=== PATIENT | female | born 1985 ===

== ENCOUNTER 2019-08-19 13:57 | Inpatient (IN) | payer OTHER ==
[2019-08-19] MEDS ORDERED: NALOXONE 0.4 MG/ML 1 ML VIAL IV PRN (15:27)
[2019-08-19] MEDS ORDERED: HYDROcodone/APAP 5-325MG 1 EACH TAB PO PRN (15:27)
[2019-08-19] MEDS ORDERED: ONDANSETRON 4 MG/2 ML VIAL IVP PRN (15:27)
[2019-08-19] MEDS ORDERED: ACETAMINOPHEN TAB 325 MG TAB PO PRN (15:27)
[2019-08-19] MEDS ORDERED: ALBUTEROL INHALER 60 PUFF/8 GM INHALER (BULK) INHALATION PRN (15:31)
--- NOTE | 2019-08-19 15:35 | P.HPIM ---
History of Present Illness H&P Date: 08/19/19 Chief Complaint: shorntess of breath A 34-year-old -[place] female with a past medical history of diabetes mellitus type 2 treated with metformin unsure of blood sugars who presented initially to [facility] with complaints of shortness of breath and cough. She was transferred here as part of the Covid 19 pandemic relief transfer process. In the ER at [facility] she was found to have bilateral pneumonia with concern for possible Covid 19 versus community-acquired pneumonia. At [facility] she received Zithromax, Rocephin, Protonix, and bronchodilators. Laboratory analysis showed a white blood cell Of 5.6, Hemoglobin 12.8, Platelets 214, Absolute Lymphocytes of 2.13, Glucose 280, BUN 5, Creatinine 0.49, Sodium 134, Potassium 3.5, Chloride 100, Carbon Dioxide of 25, Creatine Kinase 128. Her Calcium was slightly low at 7.9., Ferritin markedly elevated at 558, LDH elevated at 454, test negative, influenza A and B. EKG was obtained and showed sinus tachycardia at a rate of 122, QT 390. Chest x-ray showed bilateral perihilar opacities. Seen and examined at bedside. She reports that she has been sick for approximately the last 2-3 weeks. Initially she was having some left ear pain and a sore throat. At that point in time she was placed on antibiotics and 4 days later became acutely worse. She reports that she is having significant shortness of breath and cough. Shortness of breath is worse with exertion but is still present at rest. She has had decreased appetite with loss of taste and smell which just started coming back yesterday. She has had some nausea and vomited bilious fluid. She started having diarrhea today. She is having significant body aches. She reports no fevers at home. She has no history of asthma but has noted some wheezing. She denies any significant known Covid 19 exposures. 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 She is unsure how well controlled her diabetes. Review of Systems Pertinent positives and negatives as discussed in HPI, a complete review of systems was performed and all other systems are negative. Past Medical History Past Medical History: Diabetes Mellitus Past Surgical History: Section Past Anesthesia/Blood Transfusion Reactions: No Reported Reaction Past Psychological History: No Psychological Hx Reported Smoking Status: Never smoker Past Alcohol Use History: None Reported Past Drug Use History: None Reported Additional History: Works as a collection systems modeler at [employer], no assistive devices, has been living with her mother and brother. - Past Family History Father Family Medical History: No Reported History Mother Family Medical History: Diabetes Mellitus Medications and Allergies Allergies Allergy/AdvReac Type Severity Reaction Status Date / Time No Known Allergies Allergy Verified 08/19/19 15:26 Physical Exam Osteopathic Statement: *. No significant issues noted on an osteopathic structural exam other than those noted in the History and Physical/Consult. Vitals: Vital Signs Temp Pulse Resp BP Pulse Ox 08/19/19 14:06 98.0 F 98 22 129/83 99 Intake and Output 08/19/19 08/19/19 08/19/19 06:59 14:59 22:59 Other: Weight 117.48 kg General: Ill-appearing, moderate respiratory distress appears at stated age, obese Derm: no unusual rashes/lesions no unusual ecchymoses, warm, dry Head: atraumatic, normocephalic, symmetric Eyes: EOMI, no lid lag, anicteric sclera, pupils equal round reactive to light ENT: Nose and ears atraumatic, no thrush, no pharyngeal erythema Neck: No thyromegaly, no cervical lymphadenopathy, trachea midline, supple Mouth: no lip lesion, mucus membranes dry Cardiovascular: S1S2 reg, no murmur, positive posterior tibial pulse bilateral, no edema, capillary refill less than 2 seconds Lungs: Wheezing bilateral, no rhonchi, no rales , word conversational dyspnea Abdominal: soft, nontender to palpation, no guarding, no appreciable organomegaly, normal bowel sounds Ext: no gross muscle atrophy, muscle strength 5 out of 5 in all 4 extremities grossly, no contractures, Neuro: CN II-XI grossly intact, light touch intact all 4 extremities, finger to nose within normal limits, Psych: Alert, oriented, appropriate affect Results Chest x-ray: report reviewed Thrombosis Risk Factor Assmnt - DVT/VTE Prophylaxis DVT/VTE Prophylaxis: Pharmacologic Prophylaxis ordered Assessment and Plan Assessment: Bilateral pneumonia, suspicion of Covid 19 -Influenza negative, chest x-ray with bilateral perihilar infiltrates -Continue with Rocephin, Zithromax -Patient's room air pulse ox is 100% at this point in time does not meet criteria for Plaquenil therapy. - Albuterol inhaler -Repeat chest x-ray in a.m. -Elevated LDH and mildly elevated d-dimer, lymphocytes normal -Await Covid 19 testing -Continue continue with droplet plus contact precautions Acute respiratory failure due to increased work of breathing with respiratory rate greater than 26 and conversational dyspnea -Treatment as above Diabetes mellitus type II -Hold metformin -Sliding-scale insulin -Check A1c Morbid obesity -Structured outpatient weight loss The patient is admitted with an anticipated greater than 2 midnight stay for evaluation of pneumonia. Surrogate decision-maker: Mother CODE STATUS: Full DVT prophylaxis: Heparin Discussed with: Patient, nursing, ED physicain at [facility] Anticipated discharge date: 2-[address]: home A total of 65 minutes was spent on the care of this complex patient more than 50% of the time was spent in counseling and care coordination.
[2019-08-19] MEDS ORDERED: BENZONATATE 100 MG CAP PO PRN (15:36)
[2019-08-19] MEDS ORDERED: MELATONIN 5 MG TABLET PO PRN (15:36)
[2019-08-19] MEDS ORDERED: ALBUTEROL INHALER 60 PUFF/8 GM INHALER (BULK) INHALATION SCH (16:00)
[2019-08-19 17:04] LABS: Glucose,Whole Blood 289 mg/dL (75-99)
[2019-08-19] MEDS: INSULIN ASPART (NovoLOG) 100 UNIT/ML VIAL SQ SCH ×2 (17:23→20:43)
[2019-08-19] MEDS: HEPARIN SODIUM,PORCINE 5,000 UNIT/ML 1 ML VIAL SQ SCH ×2 (17:23→23:45)
[2019-08-19] MEDS: SODIUM CHLORIDE 0.9% 1,000 ML IV SCH (17:24)
[2019-08-19] MEDS ORDERED: ALBUTEROL HFA INHALER INHALATION PRN (18:24)
[2019-08-19 20:08] LABS: Glucose,Whole Blood 319 mg/dL (75-99)
[2019-08-19] MEDS: ALBUTEROL HFA INHALER INHALATION SCH (21:34)
[2019-08-19] MEDS ORDERED: MAG HYDROX/AL HYDROX/SIMETH 30 ML CUP PO PRN (22:58)
[2019-08-19] MEDS: CALCIUM CARBONATE 500 MG CHEWABLE PO PRN (23:45)
[2019-08-20 06:54] LABS: Glucose,Whole Blood 252 mg/dL (75-99)
[2019-08-20] MEDS: SODIUM CHLORIDE 0.9% 1,000 ML IV SCH (07:02)
[2019-08-20] MEDS: AZITHROMYCIN 500 MG TAB PO SCH (07:33)
[2019-08-20] MEDS: HEPARIN SODIUM,PORCINE 5,000 UNIT/ML 1 ML VIAL SQ SCH ×2 (07:33→16:58)
[2019-08-20] MEDS: INSULIN ASPART (NovoLOG) 100 UNIT/ML VIAL SQ SCH ×4 (07:33→21:33)
[2019-08-20] MEDS: ALBUTEROL HFA INHALER INHALATION SCH ×4 (08:51→20:52)
[2019-08-20 10:18] LABS: Basophils % (A) 0 %; Eosinophils # (A) 0.1 k/uL (0-0.7); Eosinophils % (A) 1 %; HGB 12.3 gm/dL (11.4-16.0); Lymphocytes # (A) 1.3 k/uL (1.0-4.8); Lymphocytes % (A) 23 %; MCH 28.5 pg (25.0-35.0); MCHC 33.2 g/dL (31.0-37.0); MCV 85.8 fL (80.0-100.0); Mean Platelet Volume 7.9; Monocytes # (A) 0.3 k/uL (0-1.0); Monocytes % (A) 5 %; Neutrophils # (A) 3.9 k/uL (1.3-7.7); Neutrophils % (A) 67 %; Platelet Count 228 k/uL (150-450); RBC 4.31 m/uL (3.80-5.40); RDW 12.5 % (11.5-15.5); WBC 5.8 k/uL (3.8-10.6)
[2019-08-20 10:35] LABS: ALT 24 U/L (4-34); AST 39 U/L (14-36); African American GFR (CKD) >90 (>60 ml/min/1.73 sqM); Albumin 3.4 g/dL (3.5-5.0); Alkaline Phosphatase 86 U/L (38-126); Anion Gap 8 mmol/L; Blood Urea Nitrogen 4 mg/dL (7-17); C Reactive Protein 25.6 mg/L (<10.0); Calcium 8.3 mg/dL (8.4-10.2); Carbon Dioxide 28 mmol/L (22-30); Chloride 99 mmol/L (98-107); Creatine Kinase 74 U/L (30-135); Glucose 284 mg/dL (74-99); LDH 785 U/L (313-618); Magnesium 1.7 mg/dL (1.6-2.3); Non-African American GFR(CKD) >90 (>60 ml/min/1.73 sqM); Phosphorus 3.1 mg/dL (2.5-4.5); Potassium 3.6 mmol/L (3.5-5.1); Sodium 135 mmol/L (137-145); Total Bilirubin 0.6 mg/dL (0.2-1.3); Total Protein 6.6 g/dL (6.3-8.2)
[2019-08-20 11:19] LABS: Glucose,Whole Blood 281 mg/dL (75-99)
--- NOTE | 2019-08-20 16:06 | P.PN ---
Subjective Progress Note Date: 08/20/19 (delayed charting see at 1120) Principal diagnosis: shortness of breath Patient is a 34-year-old -[place] female with a past medical history of diabetes mellitus type 2 treated with metformin unsure of blood sugars who presented initially to [facility] with complaints of shortness of breath and cough. She was transferred here as part of the Covid 19 pandemic relief transfer process. In the ER at [facility] she was found to have bilateral pneumonia with concern for possible Covid 19 versus community-acquired pneumonia. At [facility] she received Zithromax, Rocephin, Protonix, and bronchodilators. Laboratory analysis showed a white blood cell count of 5.6, Hemoglobin 12.8, Platelets 214, Absolute Lymphocytes of 2.13, Glucose 280, BUN 5 , Creatinine 0.49, Sodium 134, Potassium 3.5, Chloride 100, Carbon Dioxide of 25, Creatine Kinase 128. Her Calcium was slightly low at 7.9., Ferritin markedly elevated at 558, LDH elevated at 454, test negative, influenza A and B. EKG was obtained and showed sinus tachycardia at a rate of 122, QT 390. Chest x-ray showed bilateral perihilar opacities. She was transferred here and continued on Rocephin and Zithromax. She does not meet criteria for hydroxychloroquine. Patient seen and examined at bedside. She reports she still feels "terrible". She continues to have a bad cough. No nausea, vomiting, or diarrhea. Still having significant muscle aches. Objective - Vital Signs Vital signs: Vital Signs Temp 98.5 F 08/20/19 11:00 Pulse 92 08/20/19 11:00 Resp 20 08/20/19 15:47 BP 125/83 08/20/19 11:00 Pulse Ox 99 08/20/19 11:00 Intake & Output 08/19/19 08/20/19 08/20/19 18:59 06:59 18:59 Intake Total 450 Balance 450 Weight 117.48 kg Intake: Intake, IV Titration 50 Amount cefTRIAXone 1 gm In 50 Sodium Chloride 0.9% 50 ml @ 100 mls/hr IVPB Q24HR JOLLY Rx#:[id number] Oral 400 Other: # Voids 1 - Exam General: Ill appearing, no distress, appears at stated age Derm: warm, dry Head: atraumatic, normocephalic, symmetric Eyes: EOMI, no lid lag, anicteric sclera Mouth: no lip lesion, mucus membranes dry Cardiovascular: S1S2 reg, no murmur, positive posterior tibial pulse bilateral, Lungs: Rhonchi bilateral, no accessory muscle use, 3 word conversational dyspnea Abdominal: soft, nontender to palpation, no guarding, no appreciable organomegaly Ext: no gross muscle atrophy, no edema, no contractures Neuro: CN II-XI grossly intact, no focal neuro deficits Psych: Alert, oriented, appropriate affect - Labs CBC & Chem 7: 08/20/19 09:53 08/20/19 09:53 Labs: Abnormal Lab Results - Last 24 Hours (Table) 08/19/19 08/19/19 08/20/19 Range/Units 17:03 20:07 06:52 D-Dimer (<0.60) mg/L FEU Sodium (137-145) mmol/L BUN (7-17) mg/dL Creatinine (0.52-1.04) mg/dL Glucose (74-99) mg/dL POC Glucose (mg/dL) 289 H 319 H 252 H (75-99) mg/dL Calcium (8.4-10.2) mg/dL AST (14-36) U/L Lactate Dehydrogenase (313-618) U/L C-Reactive Protein (<10.0) mg/L Albumin (3.5-5.0) g/dL 08/20/19 08/20/19 08/20/19 Range/Units 09:53 09:53 11:17 D-Dimer 0.83 H (<0.60) mg/L FEU Sodium 135 L (137-145) mmol/L BUN 4 L (7-17) mg/dL Creatinine 0.42 L (0.52-1.04) mg/dL Glucose 284 H (74-99) mg/dL POC Glucose (mg/dL) 281 H (75-99) mg/dL Calcium 8.3 L (8.4-10.2) mg/dL AST 39 H (14-36) U/L Lactate Dehydrogenase 785 H (313-618) U/L C-Reactive Protein 25.6 H (<10.0) mg/L Albumin 3.4 L (3.5-5.0) g/dL Assessment and Plan Assessment: Bilateral pneumonia, suspicion of Covid 19 -Influenza negative, chest x-ray with bilateral perihilar infiltrates -D-dimer mildly elevated at 0.83, AST mildly elevated, LDH 785, elevated CRP at 25.6, CK normal -Continue with Rocephin, Zithromax -Patient's room air pulse ox is 100% at this point in time does not meet criteria for Plaquenil therapy. - Albuterol inhaler -Repeat chest x-ray in a.m. -Await Covid 19 testing -Continue continue with droplet plus contact precautions Acute respiratory failure -Treatment as above Diabetes mellitus type II -Hold metformin -Sliding-scale insulin -A1c pending Morbid obesity -Structured outpatient weight loss DVT prophylaxis: Heparin Discussed with: Patient, nursing Anticipated discharge date: In a.m. Anticipated discharge place: home A total of 35 minutes was spent on the care of this complex patient more than 50% of the time was spent in counseling and care coordination.
[2019-08-20 16:32] LABS: Glucose,Whole Blood 324 mg/dL (75-99)
[2019-08-20 20:57] LABS: Glucose,Whole Blood 305 mg/dL (75-99)
[2019-08-21] MEDS: HEPARIN SODIUM,PORCINE 5,000 UNIT/ML 1 ML VIAL SQ SCH ×4 (00:06→23:18)
[2019-08-21 06:54] LABS: Glucose,Whole Blood 290 mg/dL (75-99)
[2019-08-21] MEDS: SODIUM CHLORIDE 0.9% 1,000 ML IV SCH (07:46)
[2019-08-21] MEDS: INSULIN ASPART (NovoLOG) 100 UNIT/ML VIAL SQ SCH ×4 (07:51→22:17)
[2019-08-21] MEDS: AZITHROMYCIN 500 MG TAB PO SCH (07:51)
[2019-08-21 08:26] VITALS: RESP 18
[2019-08-21] MEDS: ALBUTEROL HFA INHALER INHALATION SCH ×4 (08:40→19:36)
[2019-08-21 08:49] LABS: ALT 21 U/L (4-34); AST 32 U/L (14-36); African American GFR (CKD) >90 (>60 ml/min/1.73 sqM); Albumin 3.4 g/dL (3.5-5.0); Alkaline Phosphatase 81 U/L (38-126); Anion Gap 7 mmol/L; Blood Urea Nitrogen 4 mg/dL (7-17); C Reactive Protein 26.7 mg/L (<10.0); Calcium 8.4 mg/dL (8.4-10.2); Carbon Dioxide 27 mmol/L (22-30); Chloride 100 mmol/L (98-107); Creatine Kinase 69 U/L (30-135); Glucose 286 mg/dL (74-99); LDH 750 U/L (313-618); Non-African American GFR(CKD) >90 (>60 ml/min/1.73 sqM); Potassium 3.8 mmol/L (3.5-5.1); Sodium 134 mmol/L (137-145); Total Bilirubin 0.7 mg/dL (0.2-1.3); Total Protein 6.6 g/dL (6.3-8.2)
[2019-08-21 09:40] LABS: HCT 35.2 % (34.0-46.0); HGB 11.7 gm/dL (11.4-16.0); MCH 28.8 pg (25.0-35.0); MCHC 33.3 g/dL (31.0-37.0); MCV 86.2 fL (80.0-100.0); Mean Platelet Volume 8.4; Platelet Count 212 k/uL (150-450); RBC 4.08 m/uL (3.80-5.40); RDW 12.6 % (11.5-15.5)
[2019-08-21 10:22] LABS: Band Neutrophils % 1 %; Eosinophils # (M) 0.05 k/uL (0-0.7); Neutrophils % (M) 50 %; Nucleated Red Blood Cells 0 /100 WBC (0-0); Total Cells Counted 100
[2019-08-21 10:25] LABS: Anisocytosis (M) Present; Polychromasia Present
[2019-08-21 11:28] LABS: Glucose,Whole Blood 301 mg/dL (75-99)
--- NOTE | 2019-08-21 13:36 | XR ---
EXAMINATION TYPE: XR chest 1V portable DATE OF EXAM: 08/21/2019 COMPARISON: None INDICATION: Pneumonia TECHNIQUE: Single frontal view of the chest is obtained. FINDINGS: The heart size is normal. The pulmonary vasculature is normal. There are patchy infiltrates in the mid left lung and at the posterior right lung base. Correlate for pneumonia. IMPRESSION: 1. Patchy infiltrate within the left midlung and right lower lobe medially. Correlate for pneumonia.
[2019-08-21 16:09] LABS: Ferritin 371.7 ng/mL (10.0-291.0)
[2019-08-21 16:42] LABS: Glucose,Whole Blood 309 mg/dL (75-99)
--- NOTE | 2019-08-21 20:09 | P.PN ---
Subjective Progress Note Date: 08/21/19 (delayed charting patient seen at 1130) Principal diagnosis: shortness of breath Patient is a 34-year-old -Spanish female with a past medical history of diabetes mellitus type 2 treated with metformin unsure of blood sugars who presented initially to [facility] with complaints of shortness of breath and cough. She was transferred here as part of the Covid 19 pandemic relief transfer process. In the ER at [facility] she was found to have bilateral pneumonia with concern for possible Covid 19 versus community-acquired pneumonia. At [facility] she received Zithromax, Rocephin, Protonix, and bronchodilators. Laboratory analysis showed a white blood cell count of 5.6, Hemoglobin 12.8, Platelets 214, Absolute Lymphocytes of 2.13, Glucose 280, BUN 5, Creatinine 0.49, Sodium 134, Potassium 3.5, Chloride 100, Carbon Dioxide of 25, Creatine Kinase 128. Her Calcium was slightly low at 7.9., Ferritin markedly elevated at 558, LDH elevated at 454, test negative, influenza A and B. EKG was obtained and showed sinus tachycardia at a rate of 122, QT 390. Chest x-ray showed bilateral perihilar opacities. She was transferred here and continued on Rocephin and Zithromax. She does not meet criteria for hydroxychloroquine. She continued to slowly improve. Patient seen and examined at bedside. Feeling much better today than yesterday. Still continues to have some cough and shortness of breath but are improving. No nausea, vomiting, or diarrhea. Objective - Vital Signs Vital signs: Vital Signs Temp 97.7 F 08/21/19 15:00 Pulse 96 08/21/19 15:00 Resp 18 08/21/19 15:00 BP 135/93 08/21/19 15:00 Pulse Ox 96 08/21/19 15:00 Intake & Output 08/21/19 08/21/19 08/22/19 06:59 18:59 06:59 Intake Total 50 804 Balance 50 804 Intake: Intake, IV Titration 50 Amount cefTRIAXone 1 gm In 50 Sodium Chloride 0.9% 50 ml @ 100 mls/hr IVPB Q24HR JOLLY Rx#:[id number] Oral 50 754 Other: # Voids 1 - Exam General: Ill appearing, no distress, appears at stated age Derm: warm, dry Head: atraumatic, normocephalic, symmetric Eyes: EOMI, no lid lag, anicteric sclera Mouth: no lip lesion, mucus membranes dry Cardiovascular: S1S2 reg, no murmur, positive posterior tibial pulse bilateral, Lungs: Coarse breath sounds bilateral, no accessory muscle use Abdominal: soft, nontender to palpation, no guarding, no appreciable organo megaly Ext: no gross muscle atrophy, no edema, no contractures Neuro: CN II-XI grossly intact, no focal neuro deficits Psych: Alert, oriented, appropriate affect - Labs CBC & Chem 7: 08/21/19 07:42 08/21/19 07:42 Labs: Abnormal Lab Results - Last 24 Hours (Table) 08/20/19 08/21/19 08/21/19 Range/Units 20:55 06:52 07:42 Sodium 134 L (137-145) mmol/L BUN 4 L (7-17) mg/dL Creatinine 0.40 L (0.52-1.04) mg/dL Glucose 286 H (74-99) mg/dL POC Glucose (mg/dL) 305 H 290 H (75-99) mg/dL Ferritin 371.7 H (10.0-291.0) ng/mL Lactate Dehydrogenase 750 H (313-618) U/L C-Reactive Protein 26.7 H (<10.0) mg/L Albumin 3.4 L (3.5-5.0) g/dL 08/21/19 08/21/19 Range/Units 11:27 16:41 Sodium (137-145) mmol/L BUN (7-17) mg/dL Creatinine (0.52-1.04) mg/dL Glucose (74-99) mg/dL POC Glucose (mg/dL) 301 H 309 H (75-99) mg/dL Ferritin (10.0-291.0) ng/mL Lactate Dehydrogenase (313-618) U/L C-Reactive Protein (<10.0) mg/L Albumin (3.5-5.0) g/dL Microbiology - Last 24 Hours (Table) 08/20/19 08:54 Gram Stain - Preliminary Sputum Assessment and Plan Assessment: Bilateral pneumonia, COVID-19 + -Influenza negative, chest x-ray with bilateral perihilar infiltrates -D-dimer mildly elevated at 0.83, AST mildly elevated, LDH 785, elevated CRP at 25.6, CK normal -Continue with Rocephin, Zithromax -Patient's room air pulse ox is 100% at this point in time does not meet criteria for Plaquenil therapy. - Albuterol inhaler -Continue continue with droplet plus contact precautions Acute respiratory failure -Treatment as above Diabetes mellitus type II -Hold metformin -Sliding-scale insulin -A1c pending Morbid obesity -Structured outpatient weight loss DVT prophylaxis: Heparin Discussed with: Patient, nursing Anticipated discharge date: in AM Anticipated discharge place: home A total of 35 minutes was spent on the care of this complex patient more than 50% of the time was spent in counseling and care coordination.
[2019-08-21] MEDS: CALCIUM CARBONATE 500 MG CHEWABLE PO PRN ×2 (20:45→20:46)
[2019-08-21 21:53] LABS: Glucose,Whole Blood 315 mg/dL (75-99)
[2019-08-22] MEDS: SODIUM CHLORIDE 0.9% 1,000 ML IV SCH (06:11)
[2019-08-22 07:06] LABS: Glucose,Whole Blood 293 mg/dL (75-99)
[2019-08-22] MEDS: HEPARIN SODIUM,PORCINE 5,000 UNIT/ML 1 ML VIAL SQ SCH (07:18)
[2019-08-22] MEDS: INSULIN ASPART (NovoLOG) 100 UNIT/ML VIAL SQ SCH ×2 (07:18→12:25)
[2019-08-22] MEDS: AZITHROMYCIN 500 MG TAB PO SCH (07:19)
[2019-08-22] MEDS: ALBUTEROL HFA INHALER INHALATION SCH ×2 (08:57→12:04)
[2019-08-22 10:14] VITALS: BMI 48.9
[2019-08-22 11:07] VITALS: BP 131/65; PULSE 92; TEMP 98.8
[2019-08-22 11:48] LABS: Glucose,Whole Blood 306 mg/dL (75-99)
--- NOTE | 2019-08-22 19:53 | P.DS ---
Providers Date of admission: 08/19/19 13:57 Expected date of discharge: 08/22/19 Attending physician: Jo Carbajal DO Primary care physician: Stated None Hospital Course: Discharge Diagnosis: COVID 19 pneumonia Acute respiratory failure Diabetes mellitus type 2 Morbid obesity Hospital Course: Patient is a 34-year-old -Malawian female with a past medical history of diabetes mellitus type 2 treated with metformin unsure of blood sugars who presented initially to [facility] with complaints of shortness of breath and cough. She was transferred here as part of the Covid 19 pandemic relief transfer process. In the ER at [facility] she was found to have bilateral pneumonia with concern for possible Covid 19 versus community-acquired pneumonia. At [facility] she received Zithromax, Rocephin, Protonix, and bronchodilators. Laboratory analysis showed a white blood cell count of 5.6, Hemoglobin 12.8, Platelets 214, Absolute Lymphocytes of 2.13, Glucose 280, BUN 5, Creatinine 0.49, Sodium 134, Potassium 3.5, Chloride 100, Carbon Dioxide of 25, Creatine Kinase 128. Her Calcium was slightly low at 7.9., Ferritin markedly elevated at 558, LDH elevated at 454, test negative, influenza A and B. EKG was obtained and showed sinus tachycardia at a rate of 122, QT 390. Chest x-ray showed bilateral perihilar opacities. She was transfe rred here and continued on Rocephin and Zithromax. She does not meet criteria for hydroxychloroquine. She continued to slowly improve. Her infiltrates persisted that she was able to wean her oxygen off. She was ambulating and still somewhat short of breath. She felt as though she could manage at home and she was subsequently discharged. She was given specific instructions on the need to continue isolation for Covid and when she can discontinue this. She was given a prescription today with albuterol as needed for shortness of breath. She will be able to confined to her own room and bathroom. She was told to seek medical attention of her shortness of breath worsens, she started spiking fevers again, or she feels more ill. Patient seen and examined at bedside. Feeling much better today. Breathing easier. Cough is decreasing. No nausea or vomiting. Feeling like she wants to go home. Vital signs reviewed and stable. General: non toxic, no distress, appears at stated age Derm: warm, dry Head: atraumatic, normocephalic, symmetric Eyes: EOMI, no lid lag, anicteric sclera Mouth: no lip lesion, mucus membranes moist Cardiovascular: S1S2 reg, no murmur, positive posterior tibial pulse bilateral, Lungs: Decreased bs bilateral, no rhonchi, no rales , no accessory muscle use Abdominal: soft, nontender to palpation, no guarding, no appreciable organomegaly Ext: no gross muscle atrophy, no edema, no contractures Neuro: CN II-XI grossly intact, no focal neuro deficits Psych: Alert, oriented, appropriate affect A total of 25 minutes of time were spent preparing this complex discharge summary . Patient Condition at Discharge: Stable Plan - Discharge Summary Discharge Rx Participant: No New Discharge Prescriptions: New Benzonatate [Tessalon Perles] 100 mg PO TID PRN #30 cap PRN Reason: Cough Albuterol Inhaler [Ventolin Hfa Inhaler] 2 puff INHALATION RT-QID puff Albuterol Inhaler [Ventolin Hfa Inhaler] 2 puff INHALATION Q2H PRN puff PRN Reason: Shortness Of Breath Or Wheezing Albuterol Sulfate [Albuterol Sulfate Hfa] 2 puff PO Q4H PRN #1 inhaler PRN Reason: Shortness Of Breath Or Wheezing Continue metFORMIN HCL 1,000 mg PO BID Discharge Medication List metFORMIN HCL 1,000 mg PO BID 08/19/19 [History] Albuterol Inhaler [Ventolin Hfa Inhaler] 2 puff INHALATION Q2H PRN puff 08/22/19 [Rx] Albuterol Inhaler [Ventolin Hfa Inhaler] 2 puff INHALATION RT-QID puff 08/22/19 [Rx] Albuterol Sulfate [Albuterol Sulfate Hfa] 2 puff PO Q4H PRN #1 inhaler 08/22/19 [Rx] Benzonatate [Tessalon Perles] 100 mg PO TID PRN #30 cap 08/22/19 [Rx] Activity/Diet/Wound Care/Special Instructions: Activity: as tolerated Diet: carb consistent Special Instructions: COVID-19 dischare instructions, isolation, mask when less than 6 feet from others. Discharge Disposition: HOME SELF-CARE
== END 2019-08-22 14:27 | disposition home or self-care (01) | DRG 177 ==
LOC: 4SSUR 13:57 → UNDOADMIN 13:57
PROVIDERS: ADMIT Internal Medicine; ATTEND Internal Medicine
DX: U07.1 COVID-19 (principal); J96.00 Acute respiratory failure, unspecified whether with hypoxia or hypercapnia; J12.89 Other viral pneumonia; Z68.42 Body mass index [BMI] 45.0-49.9, adult; E11.9 Type 2 diabetes mellitus without complications; E66.01 Morbid (severe) obesity due to excess calories; Z83.3 Family history of diabetes mellitus; Z98.891 History of uterine scar from previous surgery
CPT/HCPCS: 71045; 80053; 82550; 82728; 83036; 83615; 83735; 84100; 85025; 85379; 86140; 87070; 87205; 94640